=== PATIENT | male | born 1945 ===

== ENCOUNTER 2024-08-23 08:37 | Emergency (ER) | payer OTHER ==
[~2024-08-23] VITALS: Ht 180.3 cm; Wt 117.9 kg
[~2024-08-23 08:37] MED LIST: ACET500 PO; CIPR500 PO
[2024-08-23] MEDS ORDERED: Prinivil10 MG PO (08:59)
[2024-08-23] MEDS ORDERED: AZIT250 (08:59)
[2024-08-23] MEDS ORDERED: PRED20 PO (08:59)
[2024-08-23] MEDS ORDERED: Simvastatin40 MG PO (09:00)
[2024-08-23] MEDS ORDERED: albuterol sulfate HF (09:00)
[2024-08-23] MEDS ORDERED: PIOGLITAZONE HC15 MG PO (09:00)
[2024-08-23] MEDS ORDERED: METFORMIN HCL500 M2 PO (09:00)
[2024-08-23] MEDS ORDERED: Albuterol 2.5 MG/3 ML VIAL INH SCH (09:25)
[2024-08-23 10:26] LABS: CORONAVIRUS COVID-19 AG Negative (NEGATIVE); INFLUENZA A AG Negative (NEGATIVE); INFLUENZA B AG Negative (NEGATIVE)
[2024-08-23] MEDS ORDERED: ALBU90OI INH (11:24)
[2024-08-23] MEDS ORDERED: METPRE4DP PO (11:24)
[2024-08-23] MEDS ORDERED: PredniSONE 20 MG Tab PO ONE (11:25)
[2024-08-23 11:28] VITALS: BP 174/75
== END 2024-08-23 11:32 | disposition home or self-care (01) ==
LOC: ER 08:37
PROVIDERS: Emergency Medicine
DX: J98.01 Acute bronchospasm (principal); B34.9 Viral infection, unspecified; I10 Essential (primary) hypertension; Z79.2 Long term (current) use of antibiotics; Z79.899 Other long term (current) drug therapy; Z79.84 Long term (current) use of oral hypoglycemic drugs; Z87.891 Personal history of nicotine dependence
CPT/HCPCS: 71046; 87428-QW; 94644; 94664; 99285-25; J7512